=== PATIENT | male | born 1990 | race Caucasian/White ===

== ENCOUNTER → 2016-10-05 | Outpatient (CLI) | payer MEDICAID ==
--- NOTE | ~2016-10-05 | ECHO ---
Cardiac Stress Test Demographics Patient Name QUEENIE HERNÁNDEZ Date of Study 10/05/2016 Patient Number [id number] Visit Number [id number] Date of 1990 Room Number Accession Number [id number] Gender Male Age 26 year(s) Referring Kalyan [place] Interpreting [place] Physician [place] Tello Physician Elisha RUGGIERO MD Physician Ordering [place] Manager Physician Supervising Julian Pierre APRN Stress Inventory Assistant /MLP Nurse Carlos Gordon RN The procedure was explained in detail to the patient. Risks, complications and alternative treatments were reviewed. Written consent was obtained. Medications reviewed with patient prior to procedure. Procedure Type of Study Cardiac Stress Test:Tilt Table Study. Procedure Date Date: 10/05/2016 Start: 10:30 AM Indications:Syncopal Episode. Conclusions Summary Negative Tilt table test, no evidence of cardioinhibitory or vasodepressor response. Supine HR 68 BPM, BP 120/81. Patient tilted to 80 degrees for 40 minutes. First HR and BP post tilt 73 BPM and 111/74. No arrhythmias noted during tilt - HR remained Sinus Rhythm without EKG changes from 60-80 BPM. BP during tilt from min of 107/72 to 119/85 max. After tilt - patient was returned to baseline and carotid auscultation showed no Bruit. Carotid Massage was performed bilaterally without symptoms or vagal/bradycardia response noted. Patient given results of test at completion. Stress Protocol Rest ECG Normal sinus rhythm. Resting HR:65 bpmResting BP:120/81 mmHg Pre-Stress Physical Exam Patient assessed by Janneth JOHNSON prior to testing. Chest - CTA Cardio - RRR, S1, S2 Stress Stress Protocol: Exercise - [place] Peak HR: 68 bpm HR Response: Appropriate Peak BP: 120/81 mmHg BP Response: Appropriate Predicted HR: 196 bpm HR BP Product: 8160 % of predicted HR: 35 Max Exercise: 14.6 METS Reason for Termination: Completed ECG No ischemic EKG changes. Arrhythmias No arrhythmias noted. Symptoms Burning chest pain intermittent and present before testing. Patient described increased chest pain with deep inspiration during test. No other symptoms noted. Signature dtt: ELISHA GILLETTE dtd: 10/05/16 1030 Physician Self Edit
== END | disposition disaster alternative care site (69) ==
LOC: GCAR 09:43
DX: R55 Syncope and collapse (principal)
CPT/HCPCS: J7040